=== PATIENT | male | born 1950 ===

== ENCOUNTER 2022-08-21 12:23 | Outpatient (CLI) | payer MEDICARE, SELFPAY ==
--- NOTE | ~2022-08-21 | PE_ITS ---
CORRECTED REPORT Examination changed to PET PSMA skull to mid thigh. This report was recreated on 09/12/2022. Original report was MOBILE DETAILER. 09/12/2022 se EXAMINATION: PET PSMA skull to mid thigh DATE: 08/21/2022 15:36 INDICATION: Malignant tumor of the prostate TECHNIQUE: 9.78 mCi of pipflufolastat F-18 (18-F-DCFPyL) was administered i.v. Low dose computed tomography (CT) images were acquired from the base of the brain to the base of the brain to the proximal thighs for attenuation correction and anatomic localization. Positron emission tomography (PET) images were acquired in the same distribution beginning 92 minutes after injection. Images including fused PET/CT images were reconstructed in axial, coronal, and sagittal planes. Automated exposure control technique was employed. The dose-length product was 823.25mGy-cm. COMPARISON: None FINDINGS: Head/neck: Typical pattern of symmetric physiologic increased activity in the lacrimal, parotid and submandibular glands, salivary ducts as well as along the mucosa of the oropharynx and nasopharynx. No pathologically enlarged cervical lymphadenopathy or suspicious foci of increased uptake in the visualized head or neck. Chest: Mild dependent atelectasis in the lungs. A couple small calcified nodules in the left lung along with calcified mediastinal and left hilar lymph nodes consistent with old granulomatous disease. No other suspicious pulmonary nodules, pneumonia, pulmonary edema or pleural effusion. Heart size is normal with atherosclerotic coronary artery calcification. No pericardial effusion. No pathologically enlarged or PSMA avid thoracic lymphadenopathy. Abdomen/pelvis/proximal thighs: Physiologic renal accumulation and excretion of activity in the kidneys, bladder and along portions of ureters. Bilateral nonobstructing nephrolithiasis and small exophytic right renal cyst. There is also a 1 cm hyperdense proteinaceous/hemorrhagic cyst at the lower pole of the right kidney. Normal degree and slightly heterogenous pattern of increased uptake throughout the liver and spleen without radiologic correlate or dominant PSMA avid lesion. 1.5 cm low-attenuation photopenic cyst in the left hepatic lobe. Splenic calcifications consistent with old granulomatous disease. The gallbladder, pancreas and bilateral adrenal glands are normal. Prominent uptake scattered throughout the bowels with typical duodenal and jejunal predominance and without radiologic correlate, also likely physiologic. No pathologically enlarged or PSMA avid abdominal lymphadenopathy. Approximately 2.5-3 cm region of markedly increased uptake with maximal SUV of 44.8 cm in the right peripheral zone of the prostate. There is an adjacent separate tiny focus of uptake lateral to the region of concern with maximal SUV of 11.2 without a radiologist correlate able to be distinguished from the vasculature in this region but suspicious for small metastatic lymph node. There are couple additional small foci of increased uptake suspicious for metastatic lymphadenopathy in the deep pelvis, the first with maximal SUV 12.1 cm is located in the presacral fat posterior to the distal sigmoid colon without radiologic correlate is related to a small lymph node which is unable to be distinct from the colon or presacral vasculature. The second maximal SUV of 9.5, also without definitive radiologic correlate is positioned along the internal iliac vasculature posterior to the right ureter. Musculoskeletal: Tiny chronic focus with increased FDG uptake at the T6 vertebral body with maximal SUV of 3.3. Slightly larger focus of increased uptake with maximal SUV of 3.7 cm with a small sclerotic lesion at the right eighth rib. Tiny focus of uptake with maximal SUV of 2.3
== END 2022-08-21 12:24 | disposition home or self-care (01) ==
PROVIDERS: PCP Nurse Practitioner Family; Visit Provider Urology
DX: C61 Malignant neoplasm of prostate (principal); C79.51 Secondary malignant neoplasm of bone
CPT/HCPCS: 78815; A9552; A9595

== ENCOUNTER 2022-11-06 13:36 | Outpatient (CLI) | payer MEDICARE, SELFPAY ==
--- NOTE | ~2022-11-06 | MR_ITS ---
EXAMINATION: MR pelvis wo/w con DATE: 11/06/2022 15:07 INDICATION: Prostate cancer. TECHNIQUE: Magnetic resonance imaging (MRI) of the pelvis was performed without and with 20 mL MultiH ance intravenous contrast. COMPARISON: PET/CT 08/21/2022 FINDINGS: The prostate is moderately enlarged. There is a gel pacer between the rectum and prostate. There are no pathologically enlarged lymph nodes. There is no specific evidence of osseous metastatic disease. IMPRESSION: 1. Moderately enlarged prostate. No specific evidence of metastatic disease. Reviewed, dictated and finalized at location A.
== END 2022-11-06 13:37 | disposition home or self-care (01) ==
PROVIDERS: PCP Nurse Practitioner Family; Visit Provider Radiology Radiation Oncology
DX: C61 Malignant neoplasm of prostate (principal); N40.0 Benign prostatic hyperplasia without lower urinary tract symptoms
CPT/HCPCS: 72197; A9577

== ENCOUNTER 2022-11-18 12:11 | Outpatient (CLI) | payer MEDICARE, SELFPAY ==
--- NOTE | ~2022-11-18 | DEXA_ITS ---
Bone Density Report Name: DANISH JONES Age: 72 Sex: Male Ethnicity: White Date of : 1950 Indication: screening for osteoporosis; Referring Provider: DAVIS BURGOS Study: Bone densitometry was performed. Exam Date: November 18, 2022 Accession number: [id number] Bone Density: Region BMD T-score Z-score Classification AP Spine(L1-L4) 1.215 1.1 2.1 Normal Femoral Neck (Left) 0.898 -0.2 1.0 Normal Total Hip (Left) 1.097 0.4 1.2 Normal Femoral Neck (Right) 0.920 -0.1 1.2 Normal Total Hip (Right) 1.112 0.5 1.3 Normal Total Hip Mean 1.105 0.5 1.3 Normal World Health Organization criteria for BMD impression classify patients as: Normal (T-score at or above -1.0), Osteopenia (T-score between -1.0 and -2.5), or Osteoporosis (T-score at or below -2.5). 10-year Fracture Risk: FRAX not reported because: All T-scores for Spine Total, Hip Total, Femoral Neck at or above -1.0 Clinical Information Provided by Patient: Patient maximum height was 62.5 Drinks caffeinated beverages Impression: The patient has normal bone mass. Discussion: BONE DENSITY IS ABOVE THE MINIMUM DESIRABLE LEVEL AT ALL SKELETAL SITES TESTED. This patient?s bone mineral density is above the minimum desirable level (T-score -1.0 or better) at all sites measured. The patient should follow a healthful lifestyle (good nutrition with adequate calcium and vitamin D, and appropriate weight-bearing exercise). Follow-Up: Consider repeating this study in 5 years or sooner if there is some new clinical indication. Reported by: DIANELYS on 11/18/2022 12:30:00 PM. Reviewed, dictated and finalized at location [facility]
== END 2022-11-18 12:12 | disposition home or self-care (01) ==
LOC: ANHIMG 12:15
PROVIDERS: PCP Nurse Practitioner Family; Visit Provider Urology
DX: M81.0 Age-related osteoporosis without current pathological fracture (principal)
CPT/HCPCS: 77080

== ENCOUNTER 2022-12-20 17:16 | Emergency (ER) | payer MEDICARE, SELFPAY ==
[2022-12-20 17:20] VITALS: BP 130/77; PULSE 88; RESP 20; TEMP 36.6; O2SAT 98
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
--- NOTE | 2022-12-20 17:27 | PC.NURSE ---
wound cleaned with karracleanse
[2022-12-20] MEDS: TETANUS,DIPHTHERIA,AC PERTUSSIS ADULT 0.5 ML (ADACEL) IM (17:46)
[2022-12-20 18:06] VITALS: BP 128/74; PULSE 81; RESP 20; TEMP 36.9; O2SAT 95
== END 2022-12-20 18:10 | disposition home or self-care (01) ==
PROVIDERS: Emergency Provider Emergency Medicine; PCP Nurse Practitioner Family
DX: S61.452A Open bite of left hand, initial encounter (principal); Z85.46 Personal history of malignant neoplasm of prostate; Z23 Encounter for immunization; Z87.891 Personal history of nicotine dependence; W54.0XXA Bitten by dog, initial encounter
CPT/HCPCS: 90471; 90715; 99283

== ENCOUNTER 2023-04-28 00:29 | Emergency (ER) | payer MEDICARE, SELFPAY ==
[2023-04-28] VITALS (10 sets, daily range): BP systolic 90–132; BP diastolic 54–91; PULSE 40–97; RESP 16–24; TEMP 36.9; O2SAT 95–100
--- NOTE | ~2023-04-28 | XR_ITS ---
Portable chest x-ray Comparison: None Clinical History: Pain Findings: Lungs are clear, without focal consolidation or pleural effusion. Cardiomediastinal silho uette is stable. Bones and soft tissues are unremarkable. Impression: Normal chest. Reviewed, dictated and finalized at location M. Impression: Normal chest.
--- NOTE | 2023-04-28 00:32 | ED.CHESTPAIN ---
HPI - Chest Pain General Chief Complaint: Chest Pain Stated Complaint: Left Shoulder Pain History of Present Illness HPI narrative: Patient is a 72 year old male with history of metastatic prostate cancer, recently completed radiation, prior smoking history here with left sided chest pain. Chest pain began 2 hours ago while at rest. Pain is located over his left chest and radiates into his left neck and shoulder. He describes the pain as heaviness. No exacerbating or alleviating factors. He has some associated nausea and diaphoresis. No prior cardiac history, has never seen a certified medical aide. Pain is not worse with deep breaths. No prior stress test. No family cardiac history. No cough, congestion, fever, chills. He was a prior smoker. No known HTN or HLD. He currently takes multiple supplements but no prescribed medications. Related Data Home Medications Medication Instructions Recorded Confirmed No Home Medications 04/28/23 04/28/23 Allergies Allergy/AdvReac Type Severity Reaction Status Date / Time No Known Allergies Allergy Unknown Verified 12/20/22 17:50 Review of Systems Review of Systems: CONSTITUTIONAL: Diaphoresis. Denies fever, or chills. EYES: Denies visual changes, redness, or discharge. ENT: Denies rhinorrhea, congestion, sore throat, or otalgia. CARDIOVASCULAR: Chest pain. Denies palpitations, or edema. RESPIRATORY: Denies cough or dyspnea. GASTROINTESTINAL: Denies abdominal pain, nausea, vomiting, or diarrhea. GENITOURINARY: Denies dysuria or hematuria. SKIN: Denies rash or itching. MUSCULOSKELETAL: Denies back pain, joint pain, or myalgia. NEUROLOGIC: Denies headache, numbness, or weakness. PSYCHIATRIC: Denies anxiety or depression. PMFSH Past Medical History Medical History (Updated 04/28/23 @ 02:10 by Azeb Mas MD) Prostate cancer Surgical History Surgical History No pertinent past surgical history Social History Social History Smoking status: Former smoker Exam Narrative: GENERAL: Well-appearing, well-nourished, and in no acute distress. Diaphoretic. HEAD: Normocephalic, atraumatic. EYES: PERRLA and EOMI. ENT: Nares clear. Mucous membranes moist. NECK: Supple. CHEST: Clear to auscultation. No respiratory distress. HEART: Regular rate and rhythm. Normal peripheral pulses. ABDOMEN: Soft, nontender, nondistended. EXTREMITIES: Normal range of motion. No edema. SKIN: Warm, no rash. NEURO: No focal deficits. Alert and oriented x3. PSYCH: Normal mood and affect. Course Course Emergency Course: Chart review performed. Patient has history of prostate cancer, just completed radiation in Summer of 2022. Here for left sided chest pain. Normal triage vitals. Chart shows history of former smoker. Patient seen and evaluated. Presentation concerning for ACS. Initial EKG shows some evidence of ischemia with ST depressions however does not meet STEMI criteria. Chest pain workup initiated. ASA given. Will do repeat EKGs. Morphine and zofran ordered. Patient became more pale, diaphoretic and bradycardic into the 40s with SBP around 90-100. Repeat EKG shows bradycardia with concern of possible third degree heart block however baseline limits definitive diagnoses. Bedside CXR interpreted by myself shows normal mediastinum, no pneumothorax, no infiltrate. Patient moved to trauma room, placed on pacer pads as a precaution. IVF initiated. Will do trial of atropine. Reevaluated. Patient has improvement of HR into the 90s after 1mg of atropine. Repeat BP is 112/73. Troponin is elevated at 86.5. D-dimer negative. Heparin ordered. [facility] in [place] contacted regarding a transfer, patient and agreeable. Reevaluated HR remains in the 90s. Repeat blood pressure 143/88. He looks much more sinus on the monitor. Will do repeat EKG. Discussed with hospitalist Dr. Gutierrez at [facility],
--- NOTE | 2023-04-28 00:33 | ECG_ITS ---
Measurements Intervals [place] Rate: 65 P: 11 ND: 165 QRS: 25 QRSD: 113 T: 85 QT: 440 QTc: 458 Interpretive Statements SINUS RHYTHM INCOMPLETE RIGHT BUNDLE BRANCH BLOCK ST-T WAVE ABNORMALITY IN HIGH LATERAL LEADS- CONSIDER ISCHEMIA BASELINE WANDER- I, II, III, AVR, AVL, AVF, V4-V6 ABNORMAL ECG NO PREVIOUS ECG AVAILABLE FOR COMPARISON Electronically Signed On 04-28-2023 6:42:34 CDT by Feliciano Figueroa D.O.
[2023-04-28] MEDS: ASPIRIN 81 MG CHEWABLE TABLET 324 MG PO (00:41)
[2023-04-28] MEDS: SODIUM CHLORIDE 0.9% IV 1,000 ML 999 ML IV CONT (00:55)
[2023-04-28] MEDS: ONDANSETRON INJ 4 MG/2 ML VIAL IV PUSH (01:04)
--- NOTE | 2023-04-28 01:06 | ECG_ITS ---
Measurements Intervals [place] Rate: 48 P: NE: 0 QRS: 34 QRSD: 113 T: 122 QT: 491 QTc: 442 Interpretive Statements ATRIAL FLUTTER/TACHYCARDIA WITH SLOW VENTRICULAR RESPONSE VENTRICULAR PREMATURE COMPLEX INCOMPLETE RIGHT BUNDLE BRANCH BLOCK ST-T WAVE ABNORMALITY IN HIGH LATERAL LEADS- CONSIDER ISCHEMIA BASELINE ARTIFACT- V4-V6 ABNORMAL ECG COMPARED TO ECG 04/28/2023 00:37:00 ATRIAL FLUTTER/TACHYCARDIA NOW PRESENT Electronically Signed On 04-28-2023 6:51:23 CDT by Feliciano Figueroa D.O.
[2023-04-28 01:09] LABS: D Dimer 0.37 mg/L (0.19-0.50); Partial Thromboplastin Time 22.2 SEC (23.90-30.70); Prothrombin Time 10.6 Seconds (9.50-12.10)
[2023-04-28 01:16] LABS: Alanine Aminotransferase 34 U/L (16-63); Albumin Level 3.3 g/dL (3.4-5.0); Alkaline Phosphatase 78 U/L (46-116); Anion Gap 12 mmol/L (8-16); Aspartate Amino Transferase 23 U/L (15-37); Bilirubin,Total 0.4 mg/dL (0.00-1.00); Blood Urea Nitrogen 20 mg/dL (7-18); Calcium 8.5 mg/dL (8.5-10.1); Carbon Dioxide 25 mmol/L (21-32); Chloride 106 mmol/L (98-108); Estimated CRCL calculation 73 ml/min; Estimated Glomerular Filt Rate > 60; Glucose 187 mg/dL (70-99); NT Pro B Type Natriuretic Pept 158 pg/mL (0-125); Osmolality Calculated 303 mOsm/kg (285-295); Sodium 143 mmol/L (136-145)
[2023-04-28 01:18] LABS: Troponin I 86.5 ng/L (0.00-60.4)
[2023-04-28] MEDS: ATROPINE SULFATE 1 MG/10 ML SYRINGE (01:20)
--- NOTE | 2023-04-28 01:28 | PC.NURSE ---
patient taking a injection of Ivermectin 1ml daily ( last dose 04/25/23)
--- NOTE | 2023-04-28 01:33 | ECG_ITS ---
Measurements Intervals [place] Rate: 87 P: 38 [place]: 198 QRS: 21 QRSD: 118 T: 96 QT: 389 QTc: 468 Interpretive Statements SINUS RHYTHM INFERIOR ST ELEVATION MYOCARDIAL INFARCT- ACUTE CONSIDER POSTERIOR INFARCT, ACUTE RECIPROCAL ST DEPRESSION IN HIGH LATERAL LEADS ABNORMAL ECG COMPARED TO ECG 04/28/2023 01:01:19 SINUS RHYTHM NOW PRESENT ACUTE MYOCARDIAL INFARCT FINDING NOW PRESENT Electronically Signed On 04-28-2023 6:56:27 CDT by Feliciano Figueroa D.O.
[2023-04-28 01:34] LABS: Basophils Absolute Auto 0.01 K/mm3 (0.00-0.10); Basophils Percent Auto 0.3 % (0.0-1.0); Eosinophils Absolute Auto 0.13 K/mm3 (0.02-0.50); Eosinophils Percent Auto 3.4 % (1.0-6.0); Hematocrit 33.3 % (37.0-46.0); Hemoglobin 11.5 g/dL (12.4-15.3); Immature Granulocyte Absolute 0.01 K/mm3 (0.00-0.00); Immature Granulocyte Percent A 0.3 % (0.0-0.0); Lymphocytes Absolute Auto 0.77 K/mm3 (1.10-4.50); Lymphocytes Percent Auto 20.2 % (18.0-42.0); Mean Corpuscular HGB Conc 34.5 g/dL (32.0-36.0); Mean Corpuscular Hemoglobin 31.1 pg (27.0-31.0); Mean Platelet Volume 9.6 fl (8.7-11.0); Monocytes Absolute Auto 0.47 K/mm3 (0.10-0.90); Monocytes Percent Auto 12.3 % (2.0-11.0); Neutrophils Absolute Auto 2.4 K/mm3 (1.7-7.2); Neutrophils Percent Auto 63.5 % (50.0-70.0); Platelet Count Result 139 K/mm3 (150-420)
[2023-04-28 01:35] LABS: White Blood Count 3.8 K/mm3 (4.8-10.8)
--- NOTE | 2023-04-28 01:45 | ECG_ITS ---
Measurements Intervals [place] Rate: 65 P: 11 [place]: 165 QRS: 25 QRSD: 113 T: 85 QT: 440 QTc: 458 Interpretive Statements SINUS RHYTHM INCOMPLETE RIGHT BUNDLE BRANCH BLOCK ST-T WAVE ABNORMALITY IN HIGH LATERAL LEADS- CONSIDER ISCHEMIA BASELINE WANDER- I, II, III, AVR, AVF, V4-V6 ABNORMAL ECG NO PREVIOUS ECG AVAILABLE FOR COMPARISON Electronically Signed On 04-28-2023 6:43:31 CDT by Feliciano Figueroa D.O.
[2023-04-28] MEDS: HEPARIN SODIUM 5,000 UNITS/ML VIAL 4000 UNITS IV PUSH (01:54)
[2023-04-28] MEDS: HEPARIN SOD/D5W 100 UNITS/ML 25,000 UNITS/250 ML BAG 10 UNITS IV CONT (02:01)
--- NOTE | 2023-04-28 02:34 | PC.NURSE ---
0101 2nd IV started patient SOB, diaphoretic, anxious HR 40. Oxygen aplied, pacer pads, family updated. 0
--- NOTE | 2023-04-28 02:45 | PC.NURSE ---
0058 IV fluid bolus started, cont during fahad . 0123 atropine given. 0124 Called for transfer 0133 cont chest pain, diaphoretic & ashen color. MD cont at side, at side, nursing staff at side. p87, R 20, b/p 112/66. 0143 EKG repeated NSTEMI, Moon called accepted. 0151 COnt with chest pain, ashen color, EKG repeated. Deemed STAT heart, called [facility] activated STAT heart. 0200 patient voided 250ml clear yellow urine and large brown soft BM. 0203 SAAS here, report was given, patient loaded.
--- NOTE | 2023-04-28 03:02 | PC.NURSE ---
0130 EKG to assembly detailer via fax 0132 more EKG to assembly detailer via fax 0134 more EKG to assembly detailer via fax 02 face sheet faxed to assembly detailer. attempted to fax chart to labels molder at 0240, 0245, 0300 failed. 0308 pipelines laborer called for new fax number [phone] fax accepted
== END 2023-04-28 02:15 | disposition short-term general hospital (02) ==
PROVIDERS: Emergency Provider Student in an Organized Health Care Education/Training Program; PCP Family Medicine
DX: I21.3 ST elevation (STEMI) myocardial infarction of unspecified site (principal); R07.9 Chest pain, unspecified; R00.1 Bradycardia, unspecified; Z87.891 Personal history of nicotine dependence; Z85.46 Personal history of malignant neoplasm of prostate
CPT/HCPCS: 36415; 71045; 80053; 83880; 84484; 85025; 85380; 85610; 85730; 93005; 96361; 96374; 96375; 99291; A9270; J0461; J1644; J2405; J7030

== ENCOUNTER 2023-05-06 13:57 | Outpatient (CLI) | payer MEDICARE, SELFPAY ==
[2023-05-06 14:23] LABS: Basophils Absolute Auto 0.01 K/mm3 (0.00-0.10); Basophils Percent Auto 0.3 % (0.0-1.0); Eosinophils Absolute Auto 0.14 K/mm3 (0.02-0.50); Hematocrit 34.2 % (37.0-46.0); Hemoglobin 11.4 g/dL (12.4-15.3); Immature Granulocyte Absolute 0.01 K/mm3 (0.00-0.00); Immature Granulocyte Percent A 0.3 % (0.0-0.0); Lymphocytes Percent Auto 11.5 % (18.0-42.0); Mean Corpuscular HGB Conc 33.3 g/dL (32.0-36.0); Mean Corpuscular Hemoglobin 30.6 pg (27.0-31.0); Mean Corpuscular Volume 91.7 fL (78.0-102.0); Monocytes Absolute Auto 0.42 K/mm3 (0.10-0.90); Monocytes Percent Auto 12.1 % (2.0-11.0); Neutrophils Absolute Auto 2.5 K/mm3 (1.7-7.2); Neutrophils Percent Auto 71.8 % (50.0-70.0); Platelet Count Result 139 K/mm3 (150-420); Red Blood Count 3.73 M/mm3 (4.70-6.10); Red Cell Distribution Width 12.1 % (11.6-14.4); White Blood Count 3.5 K/mm3 (4.8-10.8)
[2023-05-06 15:03] LABS: Alanine Aminotransferase 39 U/L (16-63); Albumin Level 3.7 g/dL (3.4-5.0); Alkaline Phosphatase 75 U/L (46-116); Anion Gap 9 mmol/L (8-16); Aspartate Amino Transferase 20 U/L (15-37); Bilirubin,Total 0.5 mg/dL (0.00-1.00); Blood Urea Nitrogen 18 mg/dL (7-18); Calcium 9.2 mg/dL (8.5-10.1); Carbon Dioxide 26 mmol/L (21-32); Chloride 108 mmol/L (98-108); Estimated Glomerular Filt Rate > 60; Glucose 96 mg/dL (70-99); Osmolality Calculated 297 mOsm/kg (285-295); Potassium 3.8 mmol/L (3.5-5.1); Sodium 143 mmol/L (136-145); Total Protein 6.5 g/dL (6.4-8.2)
== END 2023-05-06 13:58 | disposition home or self-care (01) ==
LOC: CHSLAB 13:59
PROVIDERS: PCP Nurse Practitioner Family; Visit Provider Nurse Practitioner Family
DX: I21.19 ST elevation (STEMI) myocardial infarction involving other coronary artery of inferior wall (principal)
CPT/HCPCS: 36415; 80053; 85025

== ENCOUNTER 2023-07-09 22:39 | Emergency (ER) | payer MEDICARE, SELFPAY ==
--- NOTE | ~2023-07-09 | CT_ITS ---
EXAMINATION: CT abdomen pelvis wo con DATE: 07/09/2023 23:49 INDICATION: RLQ abdominal pain TECHNIQUE: Computed tomography (CT) of the abdomen and pelvis was performed without intravenous contr ast. Automated exposure control and iterative reconstruction technique were employed. The dose-length product was 515.86 mGy-cm. COMPARISON: PET/CT 08/21/2022. FINDINGS: Lower thorax: Coronary artery calcifications Liver: Simple left lobe cyst. Biliary/Gallbladder: Gallbladder is contracted. No bile duct dilation. Pancreas: No mass or duct dilation. Spleen: Normal. Adrenals: Right adrenal adenoma. Simple bilateral exophytic renal cysts. Nonobstructing 9 mm left low er pole calculus. Moderate left hydronephrosis. Hemorrhagic/proteinaceous cyst in the right lower vanessa e. Kidneys: No suspicious mass, obstructing stone, or hydronephrosis. GI tract: No small or large bowel dilation. Normal appendix. Mesentery/Peritoneum: No ascites, mass, or free air. Retroperitoneum: No mass. Atherosclerotic abdominal aortic and/or arterial calcifications. Pelvis: Partially distended urinary bladder with moderate wall thickening. Prostate seeds. 5 mm stone in the distal right ureter. Soft Tissues: Soft tissues and body wall unremarkable. Bones: No acute osseous finding. IMPRESSION: 5 mm distal right ureteral stone causing moderate obstructive uropathy. Cystitis versus bladder wall thickening from incomplete distention. Reviewed, dictated and finalized at location K. EPOINT APPLICATION DEVELOPER
--- NOTE | 2023-07-09 22:40 | ED.ABDPAIN ---
HPI - Abdominal Pain General Chief Complaint: Abdominal Pain Stated Complaint: RLQ PAIN Time Seen by Provider: 07/09/23 22:40 Source: patient Mode of arrival: ambulatory Limitations: no limitations History of Present Illness HPI narrative: 73-year-old male with a history of dyslipidemia, Metastatic prostate cancer,CAD status post stent presents to the ER with a 3 hour history of -- right lower quadrant abdominal pain . pain is rated as 8/10. No radiation of the pain. No nausea / vomiting. he has a history of kidney stones. During a urology call procedure the urologist noted a stone in his bladder. No fever or chills. No chest pain or shortness of breath MD elicited complaint: abdominal pain Pertinent past history: kidney stones Onset (ago): hour(s) ( 3 hours) Pain Consistency: constant Location: RLQ Pain scale (0-10): 8 Quality: aching Radiation: none Migration to: no migration Exacerbating factors: nothing Relieving factors: nothing Associated symptoms: denies other symptoms Related Data Home Medications Medication Instructions Recorded Confirmed aspirin 81 mg chewable tablet 81 mg PO DAILY 04/30/23 07/09/23 atorvastatin 80 mg tablet 80 mg PO QHS 04/30/23 07/09/23 ticagrelor 90 mg tablet (Brilinta) 90 mg PO Q12H 04/30/23 07/09/23 Allergies Allergy/AdvReac Type Severity Reaction Status Date / Time No Known Allergies Allergy Unknown Verified 07/09/23 23:15 Review of Systems Review of Systems: All systems reviewed & are unremarkable except as noted in HPI and below Constitutional: Constitutional: Reports as per HPI and Reports no additional constitutional complaints Eyes: Eyes: Reports as per HPI and Reports no additional eye complaints ENT: Reports system reviewed and no additional complaints, except as documented and Reports as per HPI Comments: hard of hearing Cardiovascular: Cardiovascular: Reports as per HPI and Reports no additional cardiovascular complaints Respiratory: Respiratory: Reports as per HPI and Reports no additional respiratory complaints Gastrointestinal: Gastrointestinal: Reports as per HPI, Reports no additional gastrointestinal complaints and Reports abdominal pain Comments: intermittent rectal bleeding probably secondary to hemorrhoids. Genitourinary: Genitourinary: Reports no additional male genitourinary complaints Musculoskeletal: Musculoskeletal: Reports no additional musculoskeletal complaints and Reports as per HPI Integumentary/Breasts: Skin/Breast: Reports system reviewed and no additional complaints, except as docu and Reports as per HPI Neurologic: Reports system reviewed and no additional complaints, except as documented and Reports as per HPI Psychiatric: Psychiatric: Reports no additional psychiatric complaints and Reports as per HPI Endocrine: Endocrine: Reports no additional endocrine complaints and Reports as per HPI Hematologic/Lymphatic: Hematologic/Lymphatic: Reports no additional hematologic/lymphatic complaints and Reports as per HPI Allergic/Immunologic: Allergic/Immunologic: Reports no additional allergic/immunologic complaints and Reports as per HPI PMFSH Past Medical History Medical History Coronary stent patent Myocardial Infarction Prostate cancer Surgical History Surgical History History of cardiac cath No pertinent past surgical history Social History Social History Smoking status: Former smoker Exam Const: General: healthy appearing and no acute distress Nutritional Appearance: well nourished Orientation/consciousness: patient oriented x3 Limitations: no limitations HENMT: Head: normal to inspection Ears: external ears normal Face/Nose/Sinus: Normal external nose present Face and sinus: normal facial exam Mouth: Yes Normal oral and palatal mu
[2023-07-09 22:50] VITALS: BP 141/82; PULSE 75; RESP 18; TEMP 36.7; O2SAT 97
[2023-07-09 23:00] LABS: Appearance Urine Clear (Clear); Bilirubin Urine Negative (Negative); Blood Urine 3+ (Negative); Color Urine Light Yellow (Yellow); Glucose Urine UA Negative (Negative); Ketones Urine Negative (Negative); Leukocyte Esterase Ur Trace LEU/UL (Negative); Nitrate Urine Negative (Negative); Protein Urine Trace (Negative); Specific Grav Ur >= 1.030 (1.010-1.020); Urobilinogen Urine 0.2 mg/dL (0.2-1.0)
[2023-07-09 23:00] LABS: Hemoglobin 11.5 g/dL (12.4-15.3); Mean Corpuscular HGB Conc 33.8 g/dL (32.0-36.0); Mean Corpuscular Hemoglobin 31.5 pg (27.0-31.0); Mean Corpuscular Volume 93.2 fL (78.0-102.0); Mean Platelet Volume 8.7 fl (8.7-11.0); Platelet Count Result 139 K/mm3 (150-420); Red Blood Count 3.65 M/mm3 (4.70-6.10); Red Cell Distribution Width 12.3 % (11.6-14.4); White Blood Count 3.5 K/mm3 (4.8-10.8)
[2023-07-09 23:07] LABS: Add Urine Microscopic? YES; Bacteria Urine Trace /hpf; Calcium Oxalate Crystals Urine Present /hpf; RBC Urine 21-50 /hpf (0-2); WBC Urine 0-3 /hpf (0-3)
[2023-07-09 23:22] LABS: Band Neutrophils Percent 0 % (0-6); Basophils Absolute Manual 0.03 K/mm3 (0-0.1); Basophils Percent Manual 1 % (0-1); Eosinophils Absolute Manual 0.24 K/mm3 (0.02-0.5); Eosinophils Percent Manual 7 % (1-6); Lymphocytes Percent Manual 20 % (18-44); Monocytes Absolute Manual 0.42 K/mm3 (0.1-0.90); Monocytes Percent Manual 12 % (3-9); Neutrophils Percent Manual 60 % (46-73); Platelet Estimate Adequate (Adequate); Total Cells Counted 100
[2023-07-09 23:22] LABS: Alanine Aminotransferase 41 U/L (16-63); Albumin Level 3.9 g/dL (3.4-5.0); Alkaline Phosphatase 83 U/L (46-116); Anion Gap 8 mmol/L (8-16); Aspartate Amino Transferase 27 U/L (15-37); Bilirubin,Total 0.2 mg/dL (0.00-1.00); Blood Urea Nitrogen 25 mg/dL (7-18); Carbon Dioxide 29 mmol/L (21-32); Chloride 106 mmol/L (98-108); Estimated CRCL calculation 61 ml/min; Estimated Glomerular Filt Rate > 60; Glucose 152 mg/dL (70-99); Osmolality Calculated 303 mOsm/kg (285-295); Potassium 3.7 mmol/L (3.5-5.1); Sodium 143 mmol/L (136-145); Total Protein 6.4 g/dL (6.4-8.2)
[2023-07-09 23:23] LABS: Lipase 39 U/L (16-77); Troponin I 26.2 ng/L (0.00-60.4)
[2023-07-09 23:24] LABS: Lactic Acid Reflex 0.8 mmol/L (0.4-2.0)
[2023-07-10] MEDS: SODIUM CHLORIDE 0.9% IV 1,000 ML 999 ML IV CONT (00:16)
[2023-07-10] MEDS: TAMSULOSIN HCL 0.4 MG CAPSULE PO (00:16)
[2023-07-10 01:12] VITALS: BP 121/87; PULSE 72; RESP 18; TEMP 36.7; O2SAT 99
== END 2023-07-10 01:12 | disposition home or self-care (01) ==
PROVIDERS: Emergency Provider Internal Medicine Critical Care Medicine; PCP Family Medicine
DX: N20.0 Calculus of kidney (principal); D61.818 Other pancytopenia; R10.31 Right lower quadrant pain; C61 Malignant neoplasm of prostate; I25.10 Atherosclerotic heart disease of native coronary artery without angina pectoris; E78.5 Hyperlipidemia, unspecified; I25.2 Old myocardial infarction; Z87.891 Personal history of nicotine dependence
CPT/HCPCS: 36415; 74176; 80053; 81001; 83605; 83690; 84484; 85025; 96360; 99284; A9270; J7030

== ENCOUNTER 2023-08-15 08:00 | Outpatient (RCR) | payer MEDICARE, SELFPAY | END 2023-08-22 13:50 | disposition home or self-care (01) | PROVIDERS: PCP Family Medicine | DX: Z95.5 Presence of coronary angioplasty implant and graft (principal) | CPT/HCPCS: 93798 ==

== ENCOUNTER 2023-09-15 07:47 | Outpatient (CLI) | payer MEDICARE, SELFPAY ==
--- NOTE | ~2023-09-15 | NM_ITS ---
EXAMINATION: NM bone scan whole body DATE: 09/15/2023 14:46 INDICATION: Malignant neoplasm of the prostate TECHNIQUE: 25.1 mCi Tc-99m HDP was administered intravenously. Delayed whole-body scintigrams were o btained. COMPARISON: CT abdomen pelvis dated 07/09/2023 FINDINGS: Mild likely degenerative joint centered uptake at the right acromioclavicular joint, bilateral knees, few cervical facet joints and a few joints at the bilateral hands and feet. No other suspicious foci of abnormal bone uptake to suggest metastatic disease. There is asymmetric retention of activity in the calyces at the mid to lower right kidney which could represent persistent mild hydronephrosis as seen on the prior CT. IMPRESSION: 1. Scattered mild likely degenerative joint centered uptake as detailed above. No bone lesions suspic ious for metastatic disease. 2. Suggestion of persistent mild right hydronephrosis. Reviewed, dictated and finalized at location A. [facility] RETAIL SERVICE MERCHANDISER IMPRESSION: 1. Scattered mild likely degenerative joint centered uptake as detailed above. No bone lesions suspicious for metastatic disease. 2. Suggestion of persistent mild right hydronephrosis.
== END 2023-09-15 07:48 | disposition home or self-care (01) ==
LOC: ANHIMG 07:52
PROVIDERS: PCP Family Medicine; Visit Provider Urology
DX: C61 Malignant neoplasm of prostate (principal); R93.89 Abnormal findings on diagnostic imaging of other specified body structures
CPT/HCPCS: 78306; A9503

== ENCOUNTER 2023-12-19 15:09 | Outpatient (CLI) | payer MEDICARE, SELFPAY ==
[2023-12-19 15:28] LABS: Hematocrit 36.9 % (37.0-46.0); Hemoglobin 12.2 g/dL (12.4-15.3); Mean Corpuscular HGB Conc 33.1 g/dL (32-36); Mean Corpuscular Hemoglobin 30.1 pg (27.0-31.0); Mean Corpuscular Volume 91.1 fL (78.0-102.0); Mean Platelet Volume 9.2 fl (8.7-11.0); Platelet Count Result 121 K/mm3 (150-420); Red Blood Count 4.05 M/mm3 (4.70-6.10); Red Cell Distribution Width 12.5 % (11.6-14.4); White Blood Count 3.1 K/mm3 (4.8-10.8)
[2023-12-19 15:49] LABS: Prothrombin Time 10.8 Seconds (9.50-12.1)
[2023-12-19 16:02] LABS: Hemoglobin A1C 5.2 % (<5.7)
[2023-12-19 16:04] LABS: Alanine Aminotransferase 43 U/L (16-63); Albumin Level 3.9 g/dL (3.4-5.0); Alkaline Phosphatase 88 U/L (46-116); Amylase 64 U/L (25-115); Anion Gap 8 mmol/L (4-12); Aspartate Amino Transferase 25 U/L (15-37); Bilirubin,Total 0.3 mg/dL (0.00-1.00); Blood Urea Nitrogen 22 mg/dL (7-18); Calcium 9.5 mg/dL (8.5-10.1); Carbon Dioxide 33 mmol/L (21-32); Chloride 106 mmol/L (98-108); Estimated Glomerular Filt Rate > 60; Glucose 84 mg/dL (70-99); Osmolality Calculated 306 mOsm/kg (285-295); Potassium 4.5 mmol/L (3.5-5.1); Sodium 147 mmol/L (136-145); Total Protein 6.2 g/dL (6.4-8.2)
[2023-12-19 16:07] LABS: Lipase 36 U/L (16-77)
[2023-12-19 17:20] LABS: Band Neutrophils Percent 0 % (0-6); Basophils Absolute Manual 0.03 K/mm3 (0-0.1); Basophils Percent Manual 1 % (0-1); Eosinophils Absolute Manual 0.09 K/mm3 (0.02-0.50); Eosinophils Percent Manual 3 % (1-6); Lymphocytes Absolute Manual 0.71 K/mm3 (1.1-4.5); Lymphocytes Percent Manual 23 % (18-44); Monocytes Absolute Manual 0.34 K/mm3 (0.1-0.90); Monocytes Percent Manual 11 % (3-9); Neutrophils Absolute Manual 1.92 K/mm3 (1.3-6.7); Neutrophils Percent Manual 62 % (46-73); Platelet Estimate Adequate (Adequate); Total Cells Counted 100
== END 2023-12-19 15:10 | disposition home or self-care (01) ==
LOC: CHSLAB 15:10
PROVIDERS: PCP Nurse Practitioner Family; Visit Provider Nurse Practitioner Family
DX: I21.19 ST elevation (STEMI) myocardial infarction involving other coronary artery of inferior wall (principal); Z13.1 Encounter for screening for diabetes mellitus; L81.9 Disorder of pigmentation, unspecified; R79.89 Other specified abnormal findings of blood chemistry
CPT/HCPCS: 36415; 80053; 82150; 83036; 83690; 85025; 85610

== ENCOUNTER 2024-01-06 10:25 | Outpatient (CLI) | payer MEDICARE, SELFPAY ==
[2024-01-06 11:11] LABS: Alanine Aminotransferase 38 U/L (16-63); Albumin Level 3.8 g/dL (3.4-5.0); Alkaline Phosphatase 98 U/L (46-116); Anion Gap 11 mmol/L (4-12); Aspartate Amino Transferase 27 U/L (15-37); Bilirubin,Total 0.4 mg/dL (0.00-1.00); Blood Urea Nitrogen 23 mg/dL (7-18); Calcium 8.5 mg/dL (8.5-10.1); Carbon Dioxide 26 mmol/L (21-32); Chloride 108 mmol/L (98-108); Estimated Glomerular Filt Rate > 60; Glucose 96 mg/dL (70-99); Osmolality Calculated 303 mOsm/kg (285-295); Potassium 4.1 mmol/L (3.5-5.1); Sodium 145 mmol/L (136-145); Total Protein 6.4 g/dL (6.4-8.2)
== END 2024-01-06 10:26 | disposition home or self-care (01) ==
LOC: CHSLAB 10:26
PROVIDERS: PCP Nurse Practitioner Family; Visit Provider Nurse Practitioner Family
DX: E87.0 Hyperosmolality and hypernatremia (principal)
CPT/HCPCS: 36415; 80053

== ENCOUNTER 2024-03-19 13:32 | Outpatient (CLI) | payer MEDICARE, SELFPAY ==
[2024-03-19 14:16] LABS: Strep Group A RT-PCR NOT DETECTED (Negative)
== END 2024-03-19 13:33 | disposition home or self-care (01) ==
LOC: CHSLAB 13:34
PROVIDERS: PCP Family Medicine; Visit Provider Nurse Practitioner Family
DX: J06.9 Acute upper respiratory infection, unspecified (principal)
CPT/HCPCS: 87651

== ENCOUNTER 2025-03-22 09:23 | Outpatient (CLI) | payer MEDICARE, SELFPAY ==
[2025-03-22 09:54] LABS: Hematocrit 35.5 % (37.0-46.0); Hemoglobin 11.9 g/dL (12.4-15.3); Mean Corpuscular HGB Conc 33.5 g/dL (32-36); Mean Corpuscular Hemoglobin 30.8 pg (27.0-31.0); Mean Corpuscular Volume 92.0 fL (78.0-102.0); Platelet Count Result 137 K/mm3 (150-420); Red Blood Count 3.86 M/mm3 (4.70-6.10); White Blood Count 3.2 K/mm3 (4.8-10.8)
[2025-03-22 10:24] LABS: Alanine Aminotransferase 30 U/L (6-50); Albumin Level 4.2 g/dL (3.5-5.1); Alkaline Phosphatase 78 U/L (38-126); Anion Gap 4 mmol/L (4-12); Aspartate Amino Transferase 31 U/L (17-59); Bilirubin,Total 0.4 mg/dL (0.2-1.3); Blood Urea Nitrogen 18 mg/dL (9-20); Calcium 9.6 mg/dL (8.4-10.2); Carbon Dioxide 29 mmol/L (22-30); Chloride 108 mmol/L (98-107); Cholesterol 105 mg/dL (0-200); Estimated Glomerular Filt Rate > 60; Glucose 78 mg/dL (65-110); HDL Direct 43 mg/dL; Osmolality Calculated 292 mOsm/kg (285-295); Potassium 4.3 mmol/L (3.4-5.0); Sodium 141 mmol/L (137-145); Total Protein 6.1 g/dL (6.3-8.2); Triglycerides 121 mg/dL (<150)
[2025-03-22 10:25] LABS: Band Neutrophils Percent 0 % (0-6); Basophils Absolute Manual 0.06 K/mm3 (0-0.1); Basophils Percent Manual 2 % (0-1); Eosinophils Absolute Manual 0.03 K/mm3 (0.02-0.50); Eosinophils Percent Manual 1 % (1-6); Lymphocytes Absolute Manual 0.60 K/mm3 (1.1-4.5); Lymphocytes Percent Manual 19 % (18-44); Monocytes Absolute Manual 0.32 K/mm3 (0.1-0.90); Monocytes Percent Manual 10 % (3-9); Neutrophils Absolute Manual 2.17 K/mm3 (1.3-6.7); Neutrophils Percent Manual 68 % (46-73); Total Cells Counted 100
[2025-03-22 10:54] LABS: Thyroid Stimulating Hormone Reflex 2.540 uIU/mL (0.465-4.68)
[2025-03-22 11:30] LABS: Vitamin B12 488.0 pg/mL (239-931)
[2025-03-23 07:28] LABS: Hepatitis B Surface Antigen Negative (Negative)
[2025-03-23 07:45] LABS: HIV 1/2 Ab P24 Ag Result Negative (Negative)
== END 2025-03-22 09:24 | disposition home or self-care (01) ==
PROVIDERS: PCP Family Medicine; Visit Provider Family Medicine
DX: E03.9 Hypothyroidism, unspecified (principal); I25.10 Atherosclerotic heart disease of native coronary artery without angina pectoris; E53.8 Deficiency of other specified B group vitamins
CPT/HCPCS: 36415; 80053; 80061; 82607; 82746; 84443; 85025; 86803; 87340